=== PATIENT | female | born 1945 | race Two or more races ===

== ENCOUNTER 2017-12-26 10:55 | Emergency (ER) | payer OTHER ==
[~2017-12-26] VITALS: Ht 157.5 cm; Wt 56.7 kg
[~2017-12-26 10:55] MED LIST: ALTACE5 MG PO; AMLODIPINE BESYL5 MG PO; ATIVAN1 MG PO; CLOPIDOGREL BIS75 MG PO; LIPITOR20 MG PO; MEDROLPACK PO; TENORMIN25 MG PO
== END 2017-12-26 17:49 | disposition home or self-care (01) ==
LOC: ER 10:55
DX: K63.89 Other specified diseases of intestine (principal); R10.32 Left lower quadrant pain

== ENCOUNTER 2022-01-03 19:04 | Emergency (ER) | payer OTHER ==
[~2022-01-03] VITALS: Ht 157.5 cm; Wt 53.5 kg
[2022-01-03] MEDS ORDERED: ATORVASTATIN CA20 MG PO (21:29)
[2022-01-03] MEDS ORDERED: VAZALORE81 MG PO (21:29)
[2022-01-03] MEDS ORDERED: COZAAR100 MG PO (21:29)
== END 2022-01-04 00:04 | disposition home or self-care (01) ==
LOC: ER 19:04
DX: S52.501A Unspecified fracture of the lower end of right radius, initial encounter for closed fracture (principal); W18.30XA Fall on same level, unspecified, initial encounter; Y92.480 Sidewalk as the place of occurrence of the external cause; Y93.89 Activity, other specified; S79.911A Unspecified injury of right hip, initial encounter

== ENCOUNTER 2022-01-10 06:24 | Day surgery (SDC) | payer OTHER ==
[~2022-01-10 06:24] MED LIST changes: +ATORVASTATIN CA20 MG PO; +COZAAR100 MG PO; +VAZALORE81 MG PO
== END 2022-01-10 14:25 | disposition home or self-care (01) ==
LOC: CIR.AMB 06:24
PROVIDERS: ATTEND Orthopaedic Surgery Hand Surgery
DX: S52.531A Colles' fracture of right radius, initial encounter for closed fracture (principal); I10 Essential (primary) hypertension; E78.5 Hyperlipidemia, unspecified; Z20.822 Contact with and (suspected) exposure to COVID-19
CPT/HCPCS: 25118; 25280; 25609; L8699

== ENCOUNTER 2025-01-24 14:24 | Emergency (ER) | payer OTHER ==
[~2025-01-24] VITALS: Ht 157.5 cm; Wt 47.2 kg
[2025-01-24] MEDS ORDERED: KETOROLAC TROMETHAMINE 30 MG VIAL IM STA (21:23)
[2025-01-24] MEDS ORDERED: KETOROLAC TROMETHAMINE 30 MG VIAL ONE (21:26)
== END 2025-01-24 21:50 | disposition home or self-care (01) ==
LOC: ER 14:24
DX: S82.61XA Displaced fracture of lateral malleolus of right fibula, initial encounter for closed fracture (principal); W01.0XXA Fall on same level from slipping, tripping and stumbling without subsequent striking against object, initial encounter; Y93.89 Activity, other specified; Y92.012 Bathroom of single-family (private) house as the place of occurrence of the external cause; J45.909 Unspecified asthma, uncomplicated; I10 Essential (primary) hypertension
CPT/HCPCS: 73610; 96372; 99283; J1885

== ENCOUNTER → 2025-01-31 | Emergency (ER) | payer OTHER ==
[~2025-01-31] VITALS: Ht 152.4 cm; Wt 47.2 kg
== END | disposition home or self-care (01) ==
LOC: ER 11:00
DX: Z48.02 Encounter for removal of sutures (principal)